=== PATIENT | female | born 1945 | race African-American/Black ===

== ENCOUNTER → 2017-01-13 | Outpatient (CLI) | payer MEDICARE, OTHER ==
[~2017-01-13] MED LIST: AMIO100T4 PO; AMLO5TAB4 PO; NEBI5TAB3 PO
== END | disposition home or self-care (01) ==
LOC: MRI 09:37
PROVIDERS: ATTEND Internal Medicine Gastroenterology
DX: N28.1 Cyst of kidney, acquired (principal); K80.20 Calculus of gallbladder without cholecystitis without obstruction; K76.6 Portal hypertension; K76.9 Liver disease, unspecified; K59.00 Constipation, unspecified; R18.8 Other ascites
CPT/HCPCS: 76700

== ENCOUNTER 2017-11-28 07:24 | Day surgery (SDC) | payer MEDICARE, OTHER ==
[~2017-11-28] VITALS: Ht 154.9 cm; Wt 65.8 kg
[2017-11-28] MEDS ORDERED: ASPI-1159 PO (08:38)
[2017-11-28] MEDS ORDERED: CLON0.1T PO (08:38)
[2017-11-28] MEDS ORDERED: ATEN-42 PO (08:38)
[2017-11-28] MEDS ORDERED: WARF2TAB57 PO (08:38)
[2017-11-28] MEDS ORDERED: SIMV40TA5 PO (08:38)
[2017-11-28] MEDS ORDERED: LOSA50TA20 PO (08:38)
[2017-11-28] MEDS ORDERED: NICARDIPINE 100MCG/ML 10ML VIAL (CATH LAB) IV ONE (09:45)
[2017-11-28] MEDS ORDERED: HEPARIN SODIUM 1,000 UNIT/1ML VIAL IV ONE (09:45)
[2017-11-28] MEDS ORDERED: NITROGLYCERIN 50MCG/ML 10ML VIAL (CATH LAB) IV ONE (09:45)
[2017-11-28] MEDS ORDERED: IODIXANOL 320MG/ML 100 ML BOTTLE IV ONE (09:57)
[2017-11-28] MEDS ORDERED: MIDAZOLAM HCL 2 MG/2 ML VIAL ONE (09:57)
[2017-11-28] MEDS ORDERED: FENTANYL CITRATE/PF 50MCG/ML 2ML VIAL ONE (09:57)
[2017-11-28] MEDS ORDERED: LIDOCAINE HCL/PF 1% 10 MG/ML 30ML VIAL ONE (09:58)
[2017-11-28] MEDS ORDERED: ASPIRIN/SOD BICARB/CITRIC ACID 324MG TAB EFF ONE (10:06)
[2017-11-28] MEDS ORDERED: PROTAMINE SULFATE 10MG/ML VIAL 5ML IV ONE (10:54)
[2017-11-28] MEDS ORDERED: ACETAMINOPHEN 325MG TABLET PO PRN (11:00)
[2017-11-28] MEDS ORDERED: ATROPINE SULFATE 1MG/10ML SYR IV PRN (11:00)
[2017-11-28] MEDS ORDERED: ONDANSETRON HCL 4MG/2ML VIAL IV PRN (11:00)
[2017-11-28] MEDS ORDERED: MORPHINE SULFATE 4 MG/ML CPJ (NOT FOR IM USE) IV PRN (11:30)
== END 2017-11-28 16:00 | disposition home or self-care (01) ==
LOC: CCL 07:24
PROVIDERS: ATTEND Specialist
DX: I25.10 Atherosclerotic heart disease of native coronary artery without angina pectoris (principal); I12.9 Hypertensive chronic kidney disease with stage 1 through stage 4 chronic kidney disease, or unspecified chronic kidney disease; N18.9 Chronic kidney disease, unspecified; I49.5 Sick sinus syndrome; I07.8 Other rheumatic tricuspid valve diseases; E78.00 Pure hypercholesterolemia, unspecified; Z88.2 Allergy status to sulfonamides; Z88.8 Allergy status to other drugs, medicaments and biological substances; Z79.899 Other long term (current) drug therapy; Z79.82 Long term (current) use of aspirin; Z85.030 Personal history of malignant carcinoid tumor of large intestine; Z79.891 Long term (current) use of opiate analgesic
CPT/HCPCS: 36415; 80048; 85347; 92978; 93454; 99152; 99153; C1769; C1887; C1893; J1644; J2250; J2720; J3010; J3490; J7040; Q9967

== ENCOUNTER → 2021-01-12 | Day surgery (SDC) | payer MEDICARE, OTHER ==
[~2021-01-12] MED LIST changes: +ASPI-1497 PO; +ATEN-42 PO; +CLON0.1T PO; +FENTANYL CITRATE/PF 50MCG/ML 5ML VIAL ONE; +LIDOCAINE HCL 2% JELLY 5ML ONE; +LOSA50TA41 PO; +MIDAZOLAM HCL 5 MG/5 ML VIAL ONE; +SIMV-46 PO; +TETRACAINE/BENZOCAINE/BUTAMBEN 20 GM SPRAY MM ONE; +WARF2TAB57 PO
== END | disposition home or self-care (01) ==
LOC: CCL 12:07
PROVIDERS: ATTEND Specialist
DX: I07.1 Rheumatic tricuspid insufficiency (principal); Z79.899 Other long term (current) drug therapy; Z88.2 Allergy status to sulfonamides; Z88.8 Allergy status to other drugs, medicaments and biological substances; Z98.890 Other specified postprocedural states
CPT/HCPCS: 93312; J2250; J3010

== ENCOUNTER → 2024-03-27 | Day surgery (SDC) | payer MEDICARE, OTHER ==
[~2024-03-27] VITALS: Ht 154.9 cm; Wt 65.8 kg
[~2024-03-27] MED LIST changes: +APIX5TAB PO; +ASPIRIN 325MG TABLET ONE; +CALC0.253 PO; +CLOPIDOGREL 75MG TABLET ONE; +DIPHENHYDRAMINE 50MG/ML VIAL ONE; +DOPAMINE 400MG/250ML PREMIX 250 ML IV ONE; +EPINEPHRINE 0.1MG/ML (1:10,000) 10ML SYR ONE; +FENTANYL CITRATE/PF 50MCG/ML 2ML VIAL ONE; -FENTANYL CITRATE/PF 50MCG/ML 5ML VIAL ONE; +FURO20TA4 PO; +HEPARIN 1000 UNITS/ML 10ML ONE; +IODIXANOL 320MG/ML 100 ML BOTTLE IV ONE; +LEVO100T9 PO; +LEVO5TAB29 PO; +LIDOCAINE 2% 6ML GLYDO MM ONE; +LIDOCAINE HCL 1% 20ML VIAL ONE; -LIDOCAINE HCL 2% JELLY 5ML ONE; +MIDAZOLAM HCL 2 MG/2 ML VIAL ONE; +NEBI5TAB2 PO; -NEBI5TAB3 PO; +PRAV40TA58 PO; +SODIUM CHLORIDE 0.45% 500 ML IV ONE; +SPIR25TA6 PO; +VERAPAMIL HCL 2.5 MG/1 ML 2ML VIAL IV ONE
== END | disposition home or self-care (01) ==
LOC: CCL 09:04
PROVIDERS: ATTEND Specialist
DX: I08.3 Combined rheumatic disorders of mitral, aortic and tricuspid valves (principal); I48.91 Unspecified atrial fibrillation; I25.10 Atherosclerotic heart disease of native coronary artery without angina pectoris; E03.9 Hypothyroidism, unspecified; E78.5 Hyperlipidemia, unspecified; I12.9 Hypertensive chronic kidney disease with stage 1 through stage 4 chronic kidney disease, or unspecified chronic kidney disease; N18.9 Chronic kidney disease, unspecified; Z79.82 Long term (current) use of aspirin; Z79.01 Long term (current) use of anticoagulants; Z79.899 Other long term (current) drug therapy; Z98.890 Other specified postprocedural states; Z88.2 Allergy status to sulfonamides; Z88.8 Allergy status to other drugs, medicaments and biological substances
CPT/HCPCS: 93312; 93005; J3010; Q9967; J1200; J3490 ×3; J1644 ×2; J2250 ×2; J1265; J8499